=== PATIENT | female | born 1935 | race Caucasian/White ===

== ENCOUNTER 2019-09-30 01:05 | Emergency (ER) | payer MEDICARE ==
[~2019-09-30] VITALS: Ht 152.4 cm; Wt 77.1 kg
--- NOTE | 2019-09-30 01:05 | NUR ---
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 Pt states that she takes Xeralto for her pacemaker. Pt states that she stopped taking Xeralto 10 days ago r/t pain to RUE and lower back. 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 Pt unable to lift RLE per gravity, RLE cool to touch, unable to palpate right pedal pulse. Left pedal pulse bounding. No discoloration noted. No loss in sensation to affected extremity.
--- NOTE | 2019-09-30 01:05 | NUR ---
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 Pt states that she takes Xeralto for her pacemaker. Pt states that she stopped taking Xeralto 10 days ago r/t pain to RUE and lower back. 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 Pt unable to lift RLE per gravity, RLE cool to touch, palpable pedal pulses Bilat. No discoloration noted. No loss in sensation to affected extremity.
--- NOTE | 2019-09-30 01:10 | NUR ---
Dr. Vegas assessing pt.
[2019-09-30] MEDS ORDERED: ONDANSETRON HCL 4 MG/2 ML VIAL IVP ONE (01:30)
[2019-09-30] MEDS ORDERED: fentaNYL CITRATE/PF 100 MCG/2 ML AMP IVP ONE (01:30)
--- NOTE | 2019-09-30 02:15 | NUR ---
Pt placed to ER bed 1, to gown, to spot sprayer. Report given to HILARY Newell.
[2019-09-30 02:17] LABS: EOSINOPHILS # (AUTO) 0.2 K/uL (0.0-0.4); MONOCYTES # (AUTO) 0.5 K/uL (0.0-1.0); MONOCYTES % (AUTO) 6.2 % (1.7-9.3)
[2019-09-30 02:25] LABS: ANION GAP 10 (5-15); CALCIUM 8.6 mg/dL (8.4-11.0); CHLORIDE 106 mmol/L (98-107); CREATININE 0.71 mg/dL (0.55-1.30); GLUCOSE 152 mg/dL (70-99); POTASSIUM 3.8 mmol/L (3.5-5.1); SODIUM SERUM 143 mmol/L (136-145); UREA NITROGEN, BLOOD 28 mg/dL (8-21)
[2019-09-30 02:28] LABS: INR 1.7 (0.8-1.2); PROTHROMBIN TIME 16.7 SECS (9.5-12.5)
[2019-09-30 02:45] LABS: ALANINE AMINOTRANSFERASE 33 U/L (12-78); ALBUMIN 3.3 g/dL (3.4-4.8); ASPARTATE AMINOTRANSFERASE 37 U/L (10-37); BASOPHILS % (AUTO) 0.4 % (0.0-2.0); EOSINOPHILS % (AUTO) 2.6 % (0.0-4.0); HEMATOCRIT 36.7 % (36-48); HEMOGLOBIN 12.1 g/dL (12.0-16.0); LYMPHOCYTES # (AUTO) 1.8 K/uL (1.0-5.5); LYMPHOCYTES % (AUTO) 24.6 % (20.5-51.5); MEAN CORPUSCULAR HEMOGLOBIN 29 pg (27-31); MEAN CORPUSCULAR HGB CONC 33 % (32-36); MEAN CORPUSCULAR VOLUME 89 fL (79.0-98.0); NEUTROPHILS # (AUTO) 4.9 K/uL (1.8-7.7); NEUTROPHILS % (AUTO) 66.2 % (40.0-70.0); PLATELET COUNT (AUTO) 153 K/uL (130-430); RED BLOOD CELL COUNT(AUTO) 4.12 MIL/uL (4.2-6.2); RED CELL DISTRIBUTION WIDTH 16.8 % (9.0-15.0); TOTAL BILIRUBIN 0.5 mg/dL (0.0-1.0); WHITE BLOOD COUNT (AUTO) 7.4 K/uL (4.8-10.8)
--- NOTE | 2019-09-30 03:33 | NUR ---
Pt soiled gown changed. Pt repositioned and given new warm blanket for comfort
--- NOTE | 2019-09-30 04:06 | NUR ---
Medicated per MD orders. Tolerated well. Bed in lowest position, side rails up. at bedside.
--- NOTE | 2019-09-30 04:10 | NUR ---
Pt able to swallow water without difficulty
--- NOTE | 2019-09-30 05:00 | NUR ---
Pt restin gin ed bed comfortably. No acute distress noted. Vital signs stable.
--- NOTE | 2019-09-30 06:20 | NUR ---
Pt began run of abnormal rythm. MD whitman made aware.
--- NOTE | 2019-09-30 06:31 | NUR ---
20mg Cardizem IVP
--- NOTE | 2019-09-30 06:35 | NUR ---
Post Cardizem strip printed.
[2019-09-30] MEDS ORDERED: DILTIAZEM HCL 25 MG/5 ML VIAL IVP ONE ×2 (06:45→08:30)
--- NOTE | 2019-09-30 07:20 | NUR ---
Report given to HILARY Baeza. All care endorsed. Pt VSS
--- NOTE | 2019-09-30 07:21 | NUR ---
Dr. Masterson, Ophelia EPRP doc, paged back to speak to Dr. Vegas regarding pt status.
--- NOTE | 2019-09-30 07:37 | NUR ---
Currently waiting for a [facility] bed. Pt is in stable condition. Report received from Reece RICHARD.
[2019-09-30] MEDS ORDERED: HEPARIN 25,000 UNITS/D5W 250ML 250 ML IV ONE ×2 (07:45→08:45)
--- NOTE | 2019-09-30 08:16 | NUR ---
TRANSFER INFO [facility] ACCEPTING: MOHAN DAHL REPORT: [phone] CCT ETA 0900 SPOKE TO KIRT
[2019-09-30] MEDS ORDERED: HEPARIN SODIUM,PORCINE 5000 UNITS/ML VIAL IVP ONE (08:45)
--- NOTE | 2019-09-30 09:02 | NUR ---
4,000 unit IVP Heparin bolus given. Heparin drip started at 1000 unit/hr, 10ml/hr.
[2019-09-30 09:07] VITALS: BP_SYST 148
--- NOTE | 2019-09-30 09:13 | NUR ---
Patient to be transferred to [facility] ER. Is being transferred due to higher level of care. Receiving facility has accepting physician and available space. ER physician has signed transfer form. Patient or responsible constitution party has agreed to transfer and signed form. Patient belongings inventoried and will be sent with patient. Copy of nursing notes, lab reports, EKG, Physicians Orders and X-rays to be sent with patient. Report called to Jace RICHARD at receiving facility. Receiving physician is Dr. Norton. [facility] ambulance service has been called for transfer. IV is on the RUE 20g, patent and flushing well.
== END 2019-09-30 09:13 | disposition short-term general hospital (02) ==
LOC: SED 01:05
DX: I74.9 Embolism and thrombosis of unspecified artery (principal); I48.91 Unspecified atrial fibrillation; M79.604 Pain in right leg; I50.9 Heart failure, unspecified; E11.9 Type 2 diabetes mellitus without complications; Z90.49 Acquired absence of other specified parts of digestive tract; Z95.2 Presence of prosthetic heart valve; Z91.14 Patient's other noncompliance with medication regimen; Z86.79 Personal history of other diseases of the circulatory system
CPT/HCPCS: 36415; 70450-TC; 71045; 75635; 80053; 82550-TC; 84484; 85025; 85610-TC; 85730-TC; 93005; 93971; 96374; 96375; 96376; 99285

== ENCOUNTER 2020-09-07 13:17 | Emergency (ER) | payer MEDICARE ==
[~2020-09-07] VITALS: Ht 152.4 cm; Wt 72.6 kg
[2020-09-07 13:17] VITALS: BP_SYST 112
[2020-09-07 14:24] LABS: BASOPHILS # (AUTO) 0.1 K/uL (0.0-0.2); BASOPHILS % (AUTO) 0.9 % (0.0-2.0); EOSINOPHILS # (AUTO) 0.3 K/uL (0.0-0.4); EOSINOPHILS % (AUTO) 5.1 % (0.0-4.0); HEMATOCRIT 38.4 % (36-48); LYMPHOCYTES # (AUTO) 1.7 K/uL (1.0-5.5); LYMPHOCYTES % (AUTO) 24.9 % (20.5-51.5); MEAN CORPUSCULAR HEMOGLOBIN 31 pg (27-31); MEAN CORPUSCULAR HGB CONC 34 % (32-36); MEAN CORPUSCULAR VOLUME 91 fL (79.0-98.0); MONOCYTES # (AUTO) 0.5 K/uL (0.0-1.0); MONOCYTES % (AUTO) 6.9 % (1.7-9.3); NEUTROPHILS # (AUTO) 4.3 K/uL (1.8-7.7); NEUTROPHILS % (AUTO) 62.2 % (40.0-70.0); PLATELET COUNT (AUTO) 180 K/uL (130-430); RED BLOOD CELL COUNT(AUTO) 4.21 MIL/uL (4.2-6.2); RED CELL DISTRIBUTION WIDTH 15.3 % (9.0-15.0); WHITE BLOOD COUNT (AUTO) 6.8 K/uL (4.8-10.8)
[2020-09-07 14:37] LABS: ANION GAP 10 (5-15); CHLORIDE 105 mmol/L (98-107); CREATININE 1.09 mg/dL (0.55-1.30); GLUCOSE 151 mg/dL (70-99); POTASSIUM 3.3 mmol/L (3.5-5.1); SODIUM SERUM 142 mmol/L (136-145); UREA NITROGEN, BLOOD 24 mg/dL (8-21)
[2020-09-07 14:39] LABS: INR 1.7 (0.8-1.2); PROTHROMBIN TIME 17.3 SECS (9.5-12.5)
[2020-09-07 14:42] LABS: ALANINE AMINOTRANSFERASE 20 U/L (12-78); ALBUMIN 3.2 g/dL (3.4-4.8); ASPARTATE AMINOTRANSFERASE 23 U/L (10-37); TOTAL BILIRUBIN 0.3 mg/dL (0.0-1.0)
[2020-09-07] MEDS ORDERED: KCL 10 mEq in 50 mL (PREMIX) 50 ML IV ONE (14:45)
[2020-09-07 15:00] LABS: BILIRUBIN,URINE NEGATIVE (NEGATIVE); BLOOD, URINE NEGATIVE (NEGATIVE); CLARITY/URINE CLEAR (CLEAR); COLOR,URINE YELLOW (YELLOW); GLUCOSE,URINE NEGATIVE (NEGATIVE); KETONES,URINE NEGATIVE (NEGATIVE); LEUKOCYTE ESTERASE ,URINE NEGATIVE (NEGATIVE); NITRITE, URINE NEGATIVE (NEGATIVE); PROTEIN URINE NEGATIVE (NEGATIVE); UROBILINOGEN,URINE 0.2 (0.2-1.0)
[2020-09-07 17:10] VITALS: BP_SYST 146
== END 2020-09-07 17:10 | disposition left against medical advice (07) ==
LOC: SED 13:17
DX: R55 Syncope and collapse (principal); J44.9 Chronic obstructive pulmonary disease, unspecified; I10 Essential (primary) hypertension; E11.9 Type 2 diabetes mellitus without complications; E03.9 Hypothyroidism, unspecified
CPT/HCPCS: 36415; 70450; 71045; 76376; 80053; 81003; 83605; 83880; 84484; 85025; 85379; 85610; 85730; 87040; 96365; 99291; J3480

== ENCOUNTER 2021-11-05 15:21 | Inpatient (IN) | payer MEDICARE, SELFPAY ==
[~2021-11-05] VITALS: Ht 157.5 cm; Wt 63.0 kg
[2021-11-05 15:30] VITALS: BP_SYST 134
--- NOTE | 2021-11-05 15:32 | NUR ---
Beba nagy in [facility] - 11/05/21 at [address] Dmaon evaluating patient at bedside
--- NOTE | 2021-11-05 15:33 | NUR ---
Patient to ER bed 06 to gown for evaluation. Side rails up.
--- NOTE | 2021-11-05 15:34 | NUR ---
Dr Damon evaluating patient at bedside
--- NOTE | 2021-11-05 15:35 | NUR ---
Pt JHONATAN re ALOC post Ativan admin per family yesterday. Pt hardly arousable upon face to face assessment; localizing to painful stimuli only. Pt not following commands or verbalizing anything. "Gurgling" breaths heard; Dr Damon aware. Awaiting head CT and further dispo.
[2021-11-05] MEDS ORDERED: NACL 0.9% 1,000 ML IV ONE (15:45)
--- NOTE | 2021-11-05 16:00 | NUR ---
# 20 gauge angiocath placed to L outer forearm. Use of asceptic technique. Opsite placed over site. Blood return noted. Blood for lab drawn from site. Flushed with 10 cc of normal saline. No evidence of infiltration noted. Patient tolerated well.
[2021-11-05 16:29] LABS: BASOPHILS # (AUTO) 0.1 K/uL (0.0-0.2); BASOPHILS % (AUTO) 1.1 % (0.0-2.0); EOSINOPHILS # (AUTO) 0.1 K/uL (0.0-0.4); EOSINOPHILS % (AUTO) 1.1 % (0.0-4.0); HEMATOCRIT 36.9 % (36-48); LYMPHOCYTES # (AUTO) 2.4 K/uL (1.0-5.5); MEAN CORPUSCULAR HEMOGLOBIN 28 pg (27-31); MEAN CORPUSCULAR HGB CONC 32 % (32-36); MEAN CORPUSCULAR VOLUME 86 fL (79.0-98.0); MONOCYTES # (AUTO) 0.5 K/uL (0.0-1.0); MONOCYTES % (AUTO) 5.4 % (1.7-9.3); NEUTROPHILS # (AUTO) 5.8 K/uL (1.8-7.7); NEUTROPHILS % (AUTO) 65.4 % (40.0-70.0); PLATELET COUNT (AUTO) 175 K/uL (130-430); RED BLOOD CELL COUNT(AUTO) 4.29 MIL/uL (4.2-6.2); WHITE BLOOD COUNT (AUTO) 8.8 K/uL (4.8-10.8)
[2021-11-05 16:51] LABS: ANION GAP 9 (5-15); CALCIUM 8.5 mg/dL (8.4-11.0); CHLORIDE 107 mmol/L (98-107); CREATININE 1.18 mg/dL (0.55-1.30); GLUCOSE 120 mg/dL (70-99); POTASSIUM 4.3 mmol/L (3.5-5.1); SODIUM SERUM 145 mmol/L (136-145); UREA NITROGEN, BLOOD 42 mg/dL (8-21)
[2021-11-05 17:06] LABS: ALANINE AMINOTRANSFERASE 23 U/L (12-78); ALBUMIN 2.9 g/dL (3.4-4.8); ASPARTATE AMINOTRANSFERASE 45 U/L (10-37); THYROID STIMULATING HORMONE 5.24 uIu/mL (0.36-3.74); TOTAL BILIRUBIN 0.4 mg/dL (0.0-1.0)
[2021-11-05 17:11] LABS: ACETAMINOPHEN < 1 ug/mL (1-30); ALCOHOL, BLOOD < 3 mg/dL (<10)
--- NOTE | 2021-11-05 17:25 | NUR ---
Pt transported to [facility] via [facility]
--- NOTE | 2021-11-05 17:35 | NUR ---
Pt returned from CT scan via gurney at which time SL to L outer forearm noted to be infiltrated; SL removed. NS L stopped.
--- NOTE | 2021-11-05 17:35 | NUR ---
Pt noted to be on 6 L nasal cannula oxygen after return from CT scan
[2021-11-05 17:46] LABS: BARBITURATE, URINE NEGATIVE (NEG <=200); METHAMPHETAMINES SCREEN,URINE NEGATIVE (NEG <=500); URINE AMPHETAMINE NEGATIVE (NEG <=500); URINE METHADONE NEGATIVE (NEG <=200)
[2021-11-05 17:51] LABS: BENZODIAZEPINE, URINE POSITIVE (NEG <=150); CANNABINOID, URINE NEGATIVE (NEG <=50); COCAINE, URINE NEGATIVE (NEG <=150); OPIATE, URINE NEGATIVE (NEG <=100); PHENCYCLIDINE SCREEN,URINE NEGATIVE (NEG <=25); UR TRICYCLIC ANTIDEPRESSANTS NEGATIVE (NEG <=300); URINE OXYCODONE SCREEN NEGATIVE (NEG <=100); URINE PROPOXYPHENE SCREEN NEGATIVE (NEG <=300)
[2021-11-05 18:03] LABS: BILIRUBIN,URINE NEGATIVE (NEGATIVE); CLARITY/URINE CLOUDY (CLEAR); COLOR,URINE YELLOW (YELLOW); GLUCOSE,URINE NEGATIVE (NEGATIVE); KETONES,URINE NEGATIVE (NEGATIVE); LEUKOCYTE ESTERASE ,URINE 2+ (NEGATIVE); NITRITE, URINE NEGATIVE (NEGATIVE); PROTEIN URINE NEGATIVE (NEGATIVE); UROBILINOGEN,URINE 0.2 (0.2-1.0)
[2021-11-05 18:07] LABS: BLOOD, URINE TRACE (NEGATIVE)
[2021-11-05 18:15] LABS: BACTERIA,URINE MANY /HPF (None Seen); COARSE GRANULAR CASTS,URINE 0-10 /LPF (None Seen); MUCUS,URINE None Seen /LPF (None Seen); WBC,URINE 80-100 /HPF (0-3)
--- NOTE | 2021-11-05 18:15 | NUR ---
Unable to place new SL after a couple attempts. Dr Damon aware. Dr Damon also aware NS did not finish infusing.
--- NOTE | 2021-11-05 18:25 | NUR ---
ABG on room air obtained per RT. Patient's SpO2 noted to drop to 87-88% on room air. Oxygen put back up to 5 L.
--- NOTE | 2021-11-05 18:34 | NUR ---
Per Dr Damon, family decided to make pt DNR/DNI.
[2021-11-05] MEDS ORDERED: cefTRIAXone 1 GM in D5W 50 ML IV ONE (19:00)
--- NOTE | 2021-11-05 19:19 | NUR ---
Report given to Sherri RICHARD to assume care of patient
[2021-11-05] MEDS ORDERED: AMIO200T66 PO (19:23)
[2021-11-05] MEDS ORDERED: ROSU20TA2 PO (19:23)
[2021-11-05] MEDS ORDERED: RIVA15TA PO (19:23)
[2021-11-05] MEDS ORDERED: COR12.5 PO (19:23)
[2021-11-05] MEDS ORDERED: FURO-149 PO (19:23)
[2021-11-05] MEDS ORDERED: LEVO25TA7 PO (19:23)
--- NOTE | 2021-11-05 19:23 | NUR ---
Medication reconciliation completed with information provided by patient . Any prior medication reconciliation on file was reviewed and corrected.
--- NOTE | 2021-11-05 19:30 | NUR ---
[place] of care received, pt VSS at this time, per Amelie RN patient IV infiltated on L upper arm, no line at this time.
--- NOTE | 2021-11-05 19:50 | NUR ---
Attempted to start IV on R arm with no success, notified
--- NOTE | 2021-11-05 20:50 | NUR ---
Dr Damon placing IV on L neck/ EJ, fluids started ,well tolerated.
[2021-11-05] MEDS ORDERED: ONDANSETRON HCL 4 MG/2 ML VIAL IVP PRN (21:00)
[2021-11-05] MEDS ORDERED: cefTRIAXone 1 GM IVPB PREMIX 50 ML IV ONE (21:33)
--- NOTE | 2021-11-05 22:45 | NUR ---
Patient will be admitted to care of Dr Bernardo . Admitted to Tele unit. Will go to room 117A. Belongings list completed. Complete and up to date summary report printed. SBAR report to be given at bedside with opportunity for questions.
[2021-11-05 22:55] VITALS: BP_SYST 156
[2021-11-05] MEDS: D5/0.45 NS 1,000 ML IV SCH (23:29)
[2021-11-05] MEDS ORDERED: IPRATROPIUM/ALBUTEROL SULFATE 3 ML AMPUL.NEB (DUONEB) INH PRN (23:45)
--- NOTE | 2021-11-06 00:15 | NUR ---
CONSULTATION CALLED FOR DR. Serge GOTTLIEB FOR CONSULT OF INFECTIOUS DISEASE ORDER BY DR. RAYA SPOKE WITH RAE LEVYHEET FAXED TO [phone]
--- NOTE | 2021-11-06 00:19 | NUR ---
CONSULTATION FOR DR. BULLOCK FOR CONSULT OF INFECTIOUS DISEASE ORDER BY DR. DOROTA BULLOCK WAS ON SITE AND IS AWARE OF CONSULT DR HAS ALREADY SEEN PATIENT
[2021-11-06] MEDS: FAMOTIDINE PF 20 MG/2 ML VIAL IVP SCH ×2 (00:39→23:15)
[2021-11-06 05:00] VITALS: BP_SYST 156
[2021-11-06] MEDS ORDERED: cefTRIAXone 1 GM IVPB PREMIX 50 ML IV SCH (09:00)
[2021-11-06] MEDS: DEXAMETHASONE SOD PHOSPHATE 4 MG/ML VIAL IVP SCH (09:00)
--- NOTE | 2021-11-06 10:31 | NUR ---
Nutrition Update Yuri Scale 17 noted. Pt admitted for ALOC, COVID pneumonia. Diet: NPO BMI: 25.5 kg/m2 RD to follow per nutrition care standards.
[2021-11-06 11:37] VITALS: BP_SYST 156
[2021-11-06 15:51] VITALS: BP_SYST 174
[2021-11-06 16:51] LABS: BASOPHILS % (AUTO) 0.3 % (0.0-2.0); EOSINOPHILS # (AUTO) 0.1 K/uL (0.0-0.4); EOSINOPHILS % (AUTO) 0.8 % (0.0-4.0); HEMATOCRIT 31.6 % (36-48); HEMOGLOBIN 10.4 g/dL (12.0-16.0); LYMPHOCYTES # (AUTO) 1.7 K/uL (1.0-5.5); LYMPHOCYTES % (AUTO) 26.7 % (20.5-51.5); MEAN CORPUSCULAR HEMOGLOBIN 28 pg (27-31); MEAN CORPUSCULAR HGB CONC 33 % (32-36); MEAN CORPUSCULAR VOLUME 85 fL (79.0-98.0); MONOCYTES # (AUTO) 0.6 K/uL (0.0-1.0); MONOCYTES % (AUTO) 9.8 % (1.7-9.3); NEUTROPHILS # (AUTO) 3.9 K/uL (1.8-7.7); NEUTROPHILS % (AUTO) 62.4 % (40.0-70.0); PLATELET COUNT (AUTO) 157 K/uL (130-430); RED BLOOD CELL COUNT(AUTO) 3.73 MIL/uL (4.2-6.2); RED CELL DISTRIBUTION WIDTH 17.1 % (9.0-15.0); WHITE BLOOD COUNT (AUTO) 6.2 K/uL (4.8-10.8)
[2021-11-06 17:05] LABS: INR 1.2 (0.8-1.2); PROTHROMBIN TIME 12.5 SECS (9.5-12.5)
[2021-11-06 17:08] LABS: ANION GAP 7 (5-15); CALCIUM 7.8 mg/dL (8.4-11.0); CHLORIDE 112 mmol/L (98-107); CREATININE 0.69 mg/dL (0.55-1.30); GLUCOSE 120 mg/dL (70-99); POTASSIUM 3.4 mmol/L (3.5-5.1); SODIUM SERUM 149 mmol/L (136-145); UREA NITROGEN, BLOOD 25 mg/dL (8-21)
[2021-11-06 17:30] LABS: ALANINE AMINOTRANSFERASE 20 U/L (12-78); ALBUMIN 2.4 g/dL (3.4-4.8); ASPARTATE AMINOTRANSFERASE 30 U/L (10-37); TOTAL BILIRUBIN 0.3 mg/dL (0.0-1.0)
[2021-11-06 19:00] VITALS: BP_SYST 166
[2021-11-06 20:00] VITALS: BP_SYST 166
--- NOTE | 2021-11-06 21:45 | NUR ---
Report developed from emr.
[2021-11-07] MEDS: D5/0.45 NS 1,000 ML IV SCH ×3 (03:00→23:00)
--- NOTE | 2021-11-07 05:13 | NUR ---
onsultation Paged Reason for Consultation: Altered Was consult called : Y Person who was notified: Dr. Sharma text message Consulting Physician: Rishi Baker Ordering Physician: Dr. Carreno
[2021-11-07] MEDS ORDERED: LEVOTHYROXINE SODIUM 0.025 MG TABLET PO SCH (07:00)
[2021-11-07 07:41] LABS: BASOPHILS % (AUTO) 0.2 % (0.0-2.0); HEMATOCRIT 31.5 % (36-48); HEMOGLOBIN 10.4 g/dL (12.0-16.0); LYMPHOCYTES # (AUTO) 1.3 K/uL (1.0-5.5); LYMPHOCYTES % (AUTO) 26.9 % (20.5-51.5); MEAN CORPUSCULAR HEMOGLOBIN 28 pg (27-31); MEAN CORPUSCULAR HGB CONC 33 % (32-36); MEAN CORPUSCULAR VOLUME 84 fL (79.0-98.0); MONOCYTES # (AUTO) 0.2 K/uL (0.0-1.0); MONOCYTES % (AUTO) 3.2 % (1.7-9.3); NEUTROPHILS # (AUTO) 3.3 K/uL (1.8-7.7); NEUTROPHILS % (AUTO) 69.7 % (40.0-70.0); PLATELET COUNT (AUTO) 180 K/uL (130-430); RED BLOOD CELL COUNT(AUTO) 3.75 MIL/uL (4.2-6.2); RED CELL DISTRIBUTION WIDTH 17.5 % (9.0-15.0); WHITE BLOOD COUNT (AUTO) 4.8 K/uL (4.8-10.8)
[2021-11-07 08:13] LABS: ANION GAP 8 (5-15); CALCIUM 8.5 mg/dL (8.4-11.0); CHLORIDE 110 mmol/L (98-107); CREATININE 0.61 mg/dL (0.55-1.30); GLUCOSE 135 mg/dL (70-99); POTASSIUM 3.4 mmol/L (3.5-5.1); SODIUM SERUM 147 mmol/L (136-145); UREA NITROGEN, BLOOD 18 mg/dL (8-21)
[2021-11-07 08:19] VITALS: BP_SYST 181
[2021-11-07] MEDS: CARVEDILOL 12.5 MG TABLET (COREG) PO SCH (09:00)
[2021-11-07] MEDS: FUROSEMIDE 40 MG TABLET PO SCH (09:00)
[2021-11-07] MEDS: AMIODARONE HCL 200 MG TABLET PO SCH (09:00)
[2021-11-07] MEDS: RIVAROXABAN 15 MG TABLET PO SCH (09:00)
[2021-11-07] MEDS ORDERED: ROSUVASTATIN CALCIUM 5 MG/TAB (CRESTOR) PO SCH (09:00)
[2021-11-07] MEDS: ATORVASTATIN 20 MG TABLET PO SCH (09:00)
[2021-11-07] MEDS: DEXAMETHASONE SOD PHOSPHATE 4 MG/ML VIAL IVP SCH (10:34)
[2021-11-07] MEDS ORDERED: CEFTRIAXONE SOD 1 GM/ D5W 50 ML IV ONE ×2 (10:45)
[2021-11-07 11:24] VITALS: BP_SYST 175
[2021-11-07 15:20] VITALS: BP_SYST 165
--- NOTE | 2021-11-07 15:25 | NUR ---
NICOLE Bernardo regarding DVT prophylaxis and patient's impaired swallowing ability. Received orders. Noted and will carry out.
--- NOTE | 2021-11-07 16:59 | NUR ---
Dietitian Recommendations * Consider ST swallow eval prior to diet advancement * If PO diet is not indicated, consider alternative nutrition support within 1 week LP, RD Please refer to Nutrition Assessment for details. Addendum: 11/07/21 at [address] Amended: Links added.
--- NOTE | 2021-11-07 18:55 | NUR ---
CLOSING NOTE Patient currently resting in bed and respirations remain even and non-labored on 4 L NC. IV is patent and infusing fluids as ordered. Bed locked in lowest position and call light is within reach. All needs met throughout shift. Will endorse to mailroom clerk RN.
--- NOTE | 2021-11-07 19:55 | NUR ---
Opening notes Pt awake, alert, VSS, afebrile. IVF infusing L. ext jugular, clear and patent. Pt incontinent of urine. Pericare provided. Bed low, locked, siderails up x4, alarm on. To monitor.
[2021-11-07 21:00] VITALS: BP_SYST 146
[2021-11-07] MEDS: FAMOTIDINE PF 20 MG/2 ML VIAL IVP SCH (23:37)
[2021-11-08 00:32] VITALS: BP_SYST 152
--- NOTE | 2021-11-08 04:25 | NUR ---
Rounds Pt awake, restless, incontinent of urine. Pericare provided and repositioned pt with RECONDITIONING ASSOCIATE assist. O2 2L satting at 98-99%. Pt maintained NPO. Oral care provided. To monitor.
--- NOTE | 2021-11-08 05:40 | NUR ---
Closing notes Pt asleep, no s/s distress noted. O2 2L satting at 98-99%. IV L. ext jugular leaking. Attempt to restart IV x3, unsuccessful. Received call from pt's daughter, updated as needed. Bed low, locked, siderails up x4, bed alarm on. Safety/Covid isolation maintained. To endorse to AM nurse.
--- NOTE | 2021-11-08 07:55 | NUR ---
OPENING NOTE Received shift report from film processing shift supervisor RN. Patient resting in bed and respirations remain even and non-labored on 2 L NC. Bed locked in lowest position and call light is within reach. COVID precautions remain in place. Will continue to monitor.
[2021-11-08 08:09] VITALS: BP_SYST 157
[2021-11-08] MEDS: FUROSEMIDE 40 MG TABLET PO SCH (09:00)
[2021-11-08] MEDS: AMIODARONE HCL 200 MG TABLET PO SCH ×2 (09:00→15:17)
[2021-11-08] MEDS: CARVEDILOL 12.5 MG TABLET (COREG) PO SCH ×2 (09:00→15:17)
[2021-11-08] MEDS: D5/0.45 NS 1,000 ML IV SCH ×2 (09:00→17:15)
[2021-11-08] MEDS: ATORVASTATIN 20 MG TABLET PO SCH (09:00)
[2021-11-08] MEDS: RIVAROXABAN 15 MG TABLET PO SCH (09:00)
--- NOTE | 2021-11-08 10:30 | NUR ---
IV REINSERTION Reinserted new IV in right forearm 24 G. Will continue to monitor.
[2021-11-08] MEDS: DEXAMETHASONE SOD PHOSPHATE 4 MG/ML VIAL IVP SCH (10:59)
[2021-11-08] MEDS: CEFTRIAXONE SOD 1 GM/ D5W 50 ML IV SCH ×2 (11:00)
[2021-11-08] MEDS: ENOXAPARIN SODIUM 30 MG/0.3 ML SYRINGE SUBCUT SCH (11:01)
[2021-11-08 11:26] VITALS: BP_SYST 160
[2021-11-08] MEDS ORDERED: ALBUTEROL MDI INHALATION 8 GM INH INH PRN (13:45)
[2021-11-08 15:33] VITALS: BP_SYST 156
--- NOTE | 2021-11-08 16:30 | NUR ---
MENTAL STATUS Patient more alert and verbal to self. Can speak [place] phrases such as "bruna hambnamrata". Heart rate elevated at 130 BPM. Administered amiodarone and coreg crushed in applesauce. Will continue to monitor.
--- NOTE | 2021-11-08 18:35 | NUR ---
CLOSING NOTE Patient currently resting in bed and respirations remain even and non-labored on 2 L NC. IV is patent and infusing fluids as ordered. Bed locked in lowest position and call light is within reach. All needs met throughout shift. COVID precautions remain in place. Will endorse to specimen boss RN.
--- NOTE | 2021-11-08 20:10 | NUR ---
Opening notes Pt alert, awake, confused, restless. HR 130's. Pt incontinent of urine. Pericare provided with FOUNDER & CEO assist and repositioned in bed. Pt c/o back pain. Will check for pain medication. Bed low, locked, siderails up x 4, alarm on. Covid isolation maintained.To monitor.
--- NOTE | 2021-11-08 20:14 | NUR ---
Paged Pt awake. HR 130's on monitor. Pt c/o back pain 04/02. Paged and spoke w/ Dr. Bernardo and received order for Ultram and cardio consult. Will carry out.
--- NOTE | 2021-11-08 20:15 | NUR ---
HIGH ALERT NOTE: Called Dr. Bernardo back at [phone] identified within the medical roster to verify physician authenticity for Ultram.
[2021-11-08] MEDS: traMADol HCL HCL 50 MG TABLET (ULTRAM) PO PRN (21:14)
[2021-11-08 22:14] VITALS: BP_SYST 184
--- NOTE | 2021-11-08 22:39 | NUR ---
Pham MD/Consult Pt had elevated BP 184/73 HR 60 paced. At 2030 pt's HR 130-140's. Dr. Bernardo informed. Pham Ayala re: consult and for orders. Spoke with Cris. Awaiting callback.
[2021-11-08] MEDS: FAMOTIDINE PF 20 MG/2 ML VIAL IVP SCH (23:08)
--- NOTE | 2021-11-08 23:28 | NUR ---
RT at bedside for Stat EKG .
[2021-11-08] MEDS ORDERED: CARVEDILOL 12.5 MG TABLET (COREG) PO ONE (23:30)
[2021-11-09] VITALS: BP_SYST 169
[2021-11-09] MEDS: D5/0.45 NS 1,000 ML IV SCH ×2 (04:39→15:00)
--- NOTE | 2021-11-09 06:08 | NUR ---
Closing notes Pt asleep, easily awakens, no s/s distress noted. O2 2L satting at 98-99%. IVF infusing at ordered rate L. FA24G no s/s infiltration. Pt incontinent of urine, pericare provided. Bed low, locked, siderails up x4, bed alarm on. Safety/Covid isolation maintained. To endorse to AM nurse.
[2021-11-09] MEDS: DEXAMETHASONE SOD PHOSPHATE 4 MG/ML VIAL IVP SCH (09:53)
[2021-11-09] MEDS: ATORVASTATIN 20 MG TABLET PO SCH (09:53)
[2021-11-09] MEDS: CEFTRIAXONE SOD 1 GM/ D5W 50 ML IV SCH ×2 (09:53)
[2021-11-09] MEDS: RIVAROXABAN 15 MG TABLET PO SCH (09:54)
[2021-11-09] MEDS: ENOXAPARIN SODIUM 30 MG/0.3 ML SYRINGE SUBCUT SCH (09:55)
[2021-11-09] MEDS: CARVEDILOL 12.5 MG TABLET (COREG) PO SCH (09:56)
[2021-11-09] MEDS: FUROSEMIDE 40 MG TABLET PO SCH (09:56)
[2021-11-09] MEDS: AMIODARONE HCL 200 MG TABLET PO SCH (09:57)
[2021-11-09] MEDS: traMADol HCL HCL 50 MG TABLET (ULTRAM) PO PRN (10:01)
[2021-11-09 11:23] VITALS: BP_SYST 154
--- NOTE | 2021-11-09 12:30 | NUR ---
DR RAYA CALLED FOR AGITATION AND REGARDING ARICEPT 5 MG PO BY FAMILY REQUESTED SAID MILD DEMENTIA. AND NOT PATIENT NOT TAKEN MEDICATION. AND PATIENT HARD STICK
[2021-11-09] MEDS: LORazepam 2 MG/ML VIAL IVP PRN (14:14)
[2021-11-09 15:24] VITALS: BP_SYST 139
[2021-11-09 16:42] LABS: BASOPHILS % (AUTO) 0.4 % (0.0-2.0); EOSINOPHILS % (AUTO) 0.3 % (0.0-4.0); HEMATOCRIT 34.9 % (36-48); HEMOGLOBIN 11.5 g/dL (12.0-16.0); LYMPHOCYTES # (AUTO) 1.4 K/uL (1.0-5.5); LYMPHOCYTES % (AUTO) 16.7 % (20.5-51.5); MEAN CORPUSCULAR HEMOGLOBIN 28 pg (27-31); MEAN CORPUSCULAR HGB CONC 33 % (32-36); MEAN CORPUSCULAR VOLUME 84 fL (79.0-98.0); MONOCYTES # (AUTO) 0.4 K/uL (0.0-1.0); MONOCYTES % (AUTO) 4.3 % (1.7-9.3); NEUTROPHILS # (AUTO) 6.5 K/uL (1.8-7.7); NEUTROPHILS % (AUTO) 78.3 % (40.0-70.0); PLATELET COUNT (AUTO) 205 K/uL (130-430); RED BLOOD CELL COUNT(AUTO) 4.16 MIL/uL (4.2-6.2); RED CELL DISTRIBUTION WIDTH 16.9 % (9.0-15.0); WHITE BLOOD COUNT (AUTO) 8.3 K/uL (4.8-10.8)
[2021-11-09 16:51] LABS: ALANINE AMINOTRANSFERASE 23 U/L (12-78); ALBUMIN 2.7 g/dL (3.4-4.8); ANION GAP 9 (5-15); ASPARTATE AMINOTRANSFERASE 40 U/L (10-37); CALCIUM 8.1 mg/dL (8.4-11.0); CHLORIDE 100 mmol/L (98-107); CREATININE 0.71 mg/dL (0.55-1.30); GLUCOSE 166 mg/dL (70-99); PHOSPHORUS 1.7 mg/dL (2.7-4.5); SODIUM SERUM 139 mmol/L (136-145); TOTAL BILIRUBIN 0.3 mg/dL (0.0-1.0); UREA NITROGEN, BLOOD 18 mg/dL (8-21)
[2021-11-09 17:07] LABS: POTASSIUM 2.8 mmol/L (3.5-5.1)
--- NOTE | 2021-11-09 18:04 | NUR ---
BEEB CALLING FAMILY BUT NO JUST LEAVING A MESSAGE X3
--- NOTE | 2021-11-09 18:30 | NUR ---
PICC LINE CAME BUT NEED A CONSENT
[2021-11-09] MEDS ORDERED: POTASSIUM CHLORIDE 20 MEQ TAB.PRT.SR PO ONE (19:15)
--- NOTE | 2021-11-09 20:01 | NUR ---
cALLED FAMILY FOR CONSENT FOR MIDLINE BUT JUST LEAVING A MESSAGE.
--- NOTE | 2021-11-09 20:09 | NUR ---
CALLED DR RAYA FOR LAB RESULT OF 2.8. SAID PLEASE CALL ME BACK. PLEASE FOLLOW UP.
[2021-11-10 01:06] LABS: CHLAMYDIA TRACHOMATIS NAA Negative (Negative); NEISSERIA GONORRHOEAE NAA Negative (Negative)
[2021-11-10 01:22] VITALS: BP_SYST 175
[2021-11-10] MEDS: FAMOTIDINE PF 20 MG/2 ML VIAL IVP SCH ×2 (01:35→23:37)
[2021-11-10] MEDS: DONEPEZIL HCL 5 MG TABLET (ARICEPT) PO SCH ×2 (01:36→22:18)
[2021-11-10] MEDS: AMIODARONE HCL 200 MG TABLET PO SCH ×3 (01:44→22:25)
[2021-11-10] MEDS: CARVEDILOL 12.5 MG TABLET (COREG) PO SCH ×3 (01:46→22:20)
--- NOTE | 2021-11-10 06:39 | NUR ---
HILARY PADILLA TOLD SEVERAL TIMES THAT THE PATIENT HAS BEEN OFF THE TELE MONITOR SINCE 05:48 AM
[2021-11-10 07:00] LABS: BASOPHILS % (AUTO) 0.1 % (0.0-2.0); HEMATOCRIT 34.9 % (36-48); HEMOGLOBIN 11.7 g/dL (12.0-16.0); LYMPHOCYTES # (AUTO) 1.1 K/uL (1.0-5.5); LYMPHOCYTES % (AUTO) 15.8 % (20.5-51.5); MEAN CORPUSCULAR HEMOGLOBIN 28 pg (27-31); MEAN CORPUSCULAR HGB CONC 34 % (32-36); MEAN CORPUSCULAR VOLUME 83 fL (79.0-98.0); MONOCYTES # (AUTO) 0.6 K/uL (0.0-1.0); MONOCYTES % (AUTO) 8.7 % (1.7-9.3); NEUTROPHILS % (AUTO) 75.4 % (40.0-70.0); PLATELET COUNT (AUTO) 181 K/uL (130-430); RED BLOOD CELL COUNT(AUTO) 4.19 MIL/uL (4.2-6.2); RED CELL DISTRIBUTION WIDTH 16.2 % (9.0-15.0); WHITE BLOOD COUNT (AUTO) 6.7 K/uL (4.8-10.8)
[2021-11-10 07:20] LABS: ALANINE AMINOTRANSFERASE 30 U/L (12-78); ALBUMIN 2.6 g/dL (3.4-4.8); ANION GAP 8 (5-15); ASPARTATE AMINOTRANSFERASE 40 U/L (10-37); CHLORIDE 101 mmol/L (98-107); CREATININE 0.59 mg/dL (0.55-1.30); GLUCOSE 116 mg/dL (70-99); SODIUM SERUM 139 mmol/L (136-145); TOTAL BILIRUBIN 0.6 mg/dL (0.0-1.0); UREA NITROGEN, BLOOD 14 mg/dL (8-21)
[2021-11-10 08:19] VITALS: BP_SYST 165
[2021-11-10] MEDS: CEFTRIAXONE SOD 1 GM/ D5W 50 ML IV SCH ×2 (09:00)
--- NOTE | 2021-11-10 09:00 | NUR ---
DR RAYA CALLED FOR POTASSIUM 3.0 BUT STILL AWAITING FOR THE PICC LINE TO COME TO HAVE A MIDLINE PLACEMENT. FINALLY CONSENT SIGNED BY THE DAUGHTER NAMED RADHA AGGARWAL.
--- NOTE | 2021-11-10 10:42 | NUR ---
PLACED BILATERAL SOFT WRIST RESTRAINT. PATIENT IS CONFUSED AND PULLING OUT TUBES.
[2021-11-10] MEDS ORDERED: POTASSIUM CHLORIDE 40 MEQ in 0.45% NS 250 ML IV ONE (10:45)
--- NOTE | 2021-11-10 11:00 | NUR ---
INFORMED RAI NURSE MARINE RESOURCE ECONOMIST REGARDING THE PICC LINE NURSE. SAID HE CALLED. AWAITING FOR THE PICC LINE NURSE.
[2021-11-10 11:29] VITALS: BP_SYST 159
[2021-11-10] MEDS: ATORVASTATIN 20 MG TABLET PO SCH (11:31)
[2021-11-10] MEDS: DEXAMETHASONE SOD PHOSPHATE 4 MG/ML VIAL IVP SCH (11:31)
[2021-11-10] MEDS: FUROSEMIDE 40 MG TABLET PO SCH (11:32)
[2021-11-10] MEDS: RIVAROXABAN 15 MG TABLET PO SCH (11:33)
[2021-11-10] MEDS: ENOXAPARIN SODIUM 30 MG/0.3 ML SYRINGE SUBCUT SCH (11:33)
--- NOTE | 2021-11-10 13:42 | NUR ---
NGT TO RIGHT NARE PLACED #16. CLAMPED FOR MEDICATION. AND DRINKS.
--- NOTE | 2021-11-10 13:43 | NUR ---
DUE MEDS GIVEN AT THIS TIME. WILL CONTINUE TO MONITOR
[2021-11-10 15:23] VITALS: BP_SYST 147
--- NOTE | 2021-11-10 15:24 | NUR ---
Case mgt: Nurse Loretta inquiring who is main contact for decision-making for patient and also Marissa Esteves in admitting said she rec'd call from patient's daughter Mario [phone] asking to be added as the primary contact. I left message for Mario to call me and bring in a copy of a power of attorney at law if she has one for our records. MAMADOU RICHARD
--- NOTE | 2021-11-10 15:27 | NUR ---
DR RAYA CAME INFORMED REGARDING THE PICC LINE AWAITING TO INSERT MIDLINE. FOR THE [place] HOOD
--- NOTE | 2021-11-10 18:00 | NUR ---
INFORMED FRANCIS NURSE VEHICLE RETURN ASSOCIATE REGARDING THE PICC LINE NURSE WHEN TO COME. SAID HE CALLED IN.
--- NOTE | 2021-11-10 19:48 | NUR ---
ENDORSED TO INCOMING NURSE LORETA RICHARD.
[2021-11-10 20:00] VITALS: BP_SYST 159
--- NOTE | 2021-11-10 20:00 | NUR ---
Received pt up in bed in stable condition. Awake/confused. NGT in place. Bilateral restraints in place; skin integrity maintained. No signs of injury to bilateral wrists. Breathing adequately on RA. No signs of distress.
[2021-11-10] MEDS: D5/0.45 NS 1,000 ML IV SCH (21:00)
[2021-11-11] VITALS: BP_SYST 144
--- NOTE | 2021-11-11 | NUR ---
Resting comfortably in bed, easy to arouse. No signs of distress. Breathing adequately on RA. NGT remains in place. Bilateral restraints in place; skin integrity maintained.
--- NOTE | 2021-11-11 03:55 | NUR ---
Pt noted with dislodged NGT. No signs of injury. No active bleeding. MD made aware. Will attempt reinsertion at this time.
[2021-11-11 04:57] VITALS: BP_SYST 146
--- NOTE | 2021-11-11 06:40 | NUR ---
NGT reinserted in L nare. Chest xray ordered for placement confirmation.
[2021-11-11] MEDS: D5/0.45 NS 1,000 ML IV SCH ×2 (07:00→17:00)
--- NOTE | 2021-11-11 07:55 | NUR ---
OPENING NOTE Received shift report from hourly shift manager RN. Patient Eliza currently resting in bed and respirations remain even and non-labored on 2 L NC. NG tube is patent. Bed locked in lowest position and call light is within reach. COVID precautions remain in place. Will continue to monitor. Addendum: 11/11/21 at 1201 by Chhaya Davila RN Restrains remain in place and NGT remains in place.
[2021-11-11 08:11] VITALS: BP_SYST 162
[2021-11-11] MEDS: CEFTRIAXONE SOD 1 GM/ D5W 50 ML IV SCH ×2 (09:00)
[2021-11-11] MEDS: DEXAMETHASONE SOD PHOSPHATE 4 MG/ML VIAL IVP SCH (09:00)
--- NOTE | 2021-11-11 09:04 | NUR ---
DISCHARGE PLANNING Received call from dtr Mario Robertson, ph [phone], states she is POA that will bring in copy of Advanced Directive. Pt lives with in 1 story home, dtr Mario lives next door to pt. Mario is main caregiver for pt & also assists. Pt baseline ambulates on own & requires min assist with adl's due to pt's Alzheimers. Per dtr pt is normally alert & is oriented at times & at times confused due to Alzheimers. At home pt has hospital bed, fww, wc, shower chair, & has received home O2 due to covid & was using prior to hospitalization. States that received thru [employer] & also has a nurse that comes every 2wks and an A AND P TECHNICIAN that comes 1x/wk thru [employer] also. States was not thru [employer]. States not sure how pt has [employer] that her niece works for [employer] & set it up. Per dtr pt's tested Covid + at [facility] on 10/31/2021 & pt came back Covid + on 11/01 thru home test. Aware pt was max assist with PT & not eating. States she would be able to get pt to eat if pt was dc'd home, that pt is picky eater. Does not want pt going to SNF, states she will stay in pt's home & will be main caregiver & will also be able to assist. States has all DME required & will be agreeable with home health thru [employer] insurance.
[2021-11-11] MEDS: CARVEDILOL 12.5 MG TABLET (COREG) PO SCH ×2 (10:15→21:00)
[2021-11-11] MEDS: FUROSEMIDE 40 MG TABLET PO SCH (10:16)
[2021-11-11] MEDS: AMIODARONE HCL 200 MG TABLET PO SCH ×2 (10:17→21:00)
[2021-11-11] MEDS: ENOXAPARIN SODIUM 30 MG/0.3 ML SYRINGE SUBCUT SCH (10:19)
[2021-11-11] MEDS: ATORVASTATIN 20 MG TABLET PO SCH (10:25)
[2021-11-11 12:00] VITALS: BP_SYST 152
--- NOTE | 2021-11-11 12:01 | NUR ---
NURSING RESEARCH ASSISTANT PROFESSOR Informed nursing finishing supervisor Michelet about PICC line placement. Said he will call. Addendum: 11/11/21 at 1327 by Chhaya Davila RN PICC team will come around 1600 11/11/21
--- NOTE | 2021-11-11 16:34 | NUR ---
Nutrition F/U: RD reviewed pt's current EMR record including diet Hx, physician notes, nursing notes, pertinent labs/meds/procedures, care trends, and care activity. Admitting Diagnosis ALOC, COVID pneumonia Medical History Comment: Hypothyroidism, dementia, COPD, DM, HTN, complete heart block and paroxysmal atr fibr per physician notes SARS-CoV-2 Ag (Rapid) Positive 11/[address] bedside visit deferred d/t airborne isolation precautions a/w COVID. Per EMR reviewed, pt is having NG in placed, no feeding had been initiated. Pt is refused all meals. While awaiting discharge, pt may benefit from TF initiation to prevent malnutrition. Per discharge planning notes, pt is going to be discharge home with home health and family member want pt to eat orally due to picky eater. Skin risk score of 14 noted, with left right arm ecchymosis. Current Diet Order/Nutrition: Clear liquids x 2days. Pertinent Medications: Lovenox, coreg, Lipitor, Lasix, decadron, pepcid, D5%1/2NS at 100 ml/hr (408 kcal/day) Pertinent Labs : (11/10) K: 3.0L, GLU: 116H, ALT: 2.6L Height: 52 Weight: 139lbs/ 63.173412 kg stable since 11/07 Body Mass Index: 25.42 kg/m2 %IBW: 126 [place]/Adjusted Body Weight 110#/50 kg. 117#/53 kg Estimated Energy Expenditure (kcals/day) 3759-1999 (30-35 kcal/kg IBW d/t acute state) Estimated Protein Required (g/day) 60-75 (1.2-1.5 gm/kg IBW d/t acute state) Estimated Fluid Required (l/day) 1.6-1.9 (25-30 ml/kg CBW d/t GERIAT maintenance) Problem/Etiology/Signs/Symptoms Increased nutritional needs R/T metabolic demands AEB estimated nutritional requirements for acute state. (*on going) Expected Outcomes/Goals - Monitor TF tolerance & intakes w/ goal of pt meeting at least 75% of estimated nutritional needs, labs trending WNL, normal GI function, and skin integrity/wt maintenance Dietitian Recommendations * Initiating Glucerna 1.5 at 10ml/hr, goal of 40 ml/hr, FWF at 200ml/Q6hrs (providing 1440 kcal, 79g protein, 729 ml free water) * Include IVF, which is meeting 106% estimated caloric need, 105% estimated protein need at higher end) * D/C IVF after TF initiating due to elevated BG levels. Follow Up High Risk: F/U in 2-3days
--- NOTE | 2021-11-11 16:35 | NUR ---
Dietitian Recommendations * Initiating Glucerna 1.5 at 10ml/hr, goal of 40 ml/hr, FWF at 200ml/Q6hrs (providing 1440 kcal, 79g protein, 729 ml free water) * Include IVF, which is meeting 106% estimated caloric need, 105% estimated protein need at higher end) * D/C IVF after TF initiating due to elevated BG levels. Please refer to nutrition assessment for details.
[2021-11-11 16:50] VITALS: BP_SYST 149
--- NOTE | 2021-11-11 17:30 | NUR ---
Midline placement Midline placed in right upper arm double lumen. Will continue to monitor.
--- NOTE | 2021-11-11 18:45 | NUR ---
CLOSING NOTE Patient currently resting in bed and respirations remain even and non-labored on room air. Midline is patent and infusing fluids as ordered. NG tube remains in place. Soft wrist restraints remain on. Bed locked in lowest position and call light is within reach. COVID precautions remain in place. All needs met throughout shift. Will endorse to production intern RN.
--- NOTE | 2021-11-11 19:30 | NUR ---
Opening note Received report from day shift. Pt is resting in bed. No s/s of respiratory distress. Breathing even and unlabored. Right nare NT tube intact and in place. Soft bilateral wrist restraints in place. RAVINDRA midline intact and patent with fluids running at ordered rate. Fall and safety precautions in place with bed in lowest position, bed alarm on, and call light within reach
[2021-11-11 20:00] VITALS: BP_SYST 148
[2021-11-11] MEDS: DONEPEZIL HCL 5 MG TABLET (ARICEPT) PO SCH (21:00)
[2021-11-12] VITALS: BP_SYST 114
[2021-11-12] MEDS: FAMOTIDINE PF 20 MG/2 ML VIAL IVP SCH (00:02)
--- NOTE | 2021-11-12 00:15 | NUR ---
Rounds Pt is sleeping. No s/s of acute distress. Fall and safety checks in place
[2021-11-12] MEDS: LORazepam 2 MG/ML VIAL IVP PRN (00:29)
[2021-11-12] MEDS: D5/0.45 NS 1,000 ML IV SCH ×3 (03:16→20:46)
--- NOTE | 2021-11-12 06:47 | NUR ---
Closing note Pt is resting in bed. No s/s of respiratory distress. Breathing even and unlabored. Right nare NT tube intact and in place. Soft bilateral wrist restraints in place. RAVINDRA midline intact and patent with fluids running at ordered rate. All needs met throughout shift. Fall and safety precautions in place with bed in lowest position, bed alarm on, and call light within reach
--- NOTE | 2021-11-12 08:00 | NUR ---
OPENING NOTE Received shift report update from production supervisor off shift RN. Patient currently resting in bed and shows no signs of respiratory distress. Midline is patent and infusing fluids as ordered. Bilateral soft wrist restraints remain in place. Bed locked in lowest position and call light is within reach. COVID precautions remain in place. Will continue to monitor.
[2021-11-12 08:20] VITALS: BP_SYST 153
[2021-11-12] MEDS: CEFTRIAXONE SOD 1 GM/ D5W 50 ML IV SCH ×2 (09:20)
[2021-11-12] MEDS: ENOXAPARIN SODIUM 30 MG/0.3 ML SYRINGE SUBCUT SCH (09:21)
[2021-11-12] MEDS: AMIODARONE HCL 200 MG TABLET PO SCH ×2 (09:22→20:45)
[2021-11-12] MEDS: ATORVASTATIN 20 MG TABLET PO SCH (09:22)
[2021-11-12] MEDS: DEXAMETHASONE SOD PHOSPHATE 4 MG/ML VIAL IVP SCH (09:22)
[2021-11-12] MEDS: FUROSEMIDE 40 MG TABLET PO SCH (09:23)
[2021-11-12] MEDS: CARVEDILOL 12.5 MG TABLET (COREG) PO SCH ×2 (09:23→20:46)
--- NOTE | 2021-11-12 09:35 | NUR ---
Nutrition Note RD spoke w/ pt's primary RN to inquire about initiation of TF via NGT. She stated that she plans to ask the physician when they round. RD relayed rec for TF: Glucerna 1.5 at 40 ml/hr (goal rate), Free Water Flush: 200 ml Q6h via NGT; D/C IVF after TF initiates to prevent elevated BG. Please refer to Nutrition F/U 11/11/21 for details.
[2021-11-12 12:00] VITALS: BP_SYST 144
--- NOTE | 2021-11-12 15:24 | NUR ---
RECEIVED HOME OXYGEN Received home supplemental oxygen tank kit. Labeled equipment and put in patient's room.
[2021-11-12 16:00] VITALS: BP_SYST 135
--- NOTE | 2021-11-12 19:00 | NUR ---
CLOSING NOTE Patient currently resting in bed and respirations remain even and non-labored on 4 L NC. Midline is patent and infusing fluids as ordered. Bed locked in lowest position and call light is within reach. COVID precautions remain in place. All needs met throughout shift. Will endorse to food service coordinator RN. Addendum: 11/12/21 at 1957 by Chhaya Davila RN Bilateral soft wrist restraints remain in place.
[2021-11-12 20:00] VITALS: BP_SYST 157
--- NOTE | 2021-11-12 20:22 | NUR ---
Spoke w/ Dr Bernardo regarding no feeding pump available, ordered to give bolus feeding 200mL Q4 hours
[2021-11-12] MEDS: DONEPEZIL HCL 5 MG TABLET (ARICEPT) PO SCH (20:45)
[2021-11-13] VITALS (7 sets, daily range): BP systolic 130–188
[2021-11-13] MEDS: FAMOTIDINE PF 20 MG/2 ML VIAL IVP SCH ×2 (00:14→23:16)
--- NOTE | 2021-11-13 07:03 | NUR ---
Closing note Pt is resting in bed. No s/s of respiratory distress. Breathing even and unlabored. Right nare NG tube intact and in place. Soft bilateral wrist restraints in place. RAVINDRA midline intact and patent with fluids running at ordered rate. All needs met throughout shift. Fall and safety precautions in place with bed in lowest position, bed alarm on, and call light within reach
--- NOTE | 2021-11-13 07:41 | NUR ---
PHYSICAL THERAPY CO-SIGN The Physical Therapy Progress Notes documented by Gearcase Assembler have been reviewed. Reviewed/Co-Signed by: Melchor Rondon Documentation Done by: JHONNY PONCE PTA Addendum: 11/13/21 at 0741 by Melchor Rondon PT Amended: Links added.
[2021-11-13] MEDS: D5/0.45 NS 1,000 ML IV SCH ×2 (09:00→21:55)
[2021-11-13] MEDS: AMIODARONE HCL 200 MG TABLET PO SCH ×2 (09:00→21:55)
[2021-11-13] MEDS: CEFTRIAXONE SOD 1 GM/ D5W 50 ML IV SCH ×2 (09:00)
[2021-11-13] MEDS: CARVEDILOL 12.5 MG TABLET (COREG) PO SCH ×2 (09:00→21:54)
[2021-11-13] MEDS: ENOXAPARIN SODIUM 30 MG/0.3 ML SYRINGE SUBCUT SCH (09:00)
[2021-11-13] MEDS: ATORVASTATIN 20 MG TABLET PO SCH (09:00)
[2021-11-13] MEDS: FUROSEMIDE 40 MG TABLET PO SCH (09:00)
[2021-11-13] MEDS: DEXAMETHASONE SOD PHOSPHATE 4 MG/ML VIAL IVP SCH (09:00)
[2021-11-13 09:57] LABS: CALCIUM 8.1 mg/dL (8.4-11.0); CREATININE 0.78 mg/dL (0.55-1.30); GLUCOSE 119 mg/dL (70-99); UREA NITROGEN, BLOOD 20 mg/dL (8-21)
[2021-11-13 10:02] LABS: ANION GAP 12 (5-15); CHLORIDE 99 mmol/L (98-107); SODIUM SERUM 138 mmol/L (136-145)
[2021-11-13 10:03] LABS: BASOPHILS % (AUTO) 0.2 % (0.0-2.0); EOSINOPHILS # (AUTO) 0.2 K/uL (0.0-0.4); EOSINOPHILS % (AUTO) 1.4 % (0.0-4.0); HEMATOCRIT 35.3 % (36-48); HEMOGLOBIN 11.8 g/dL (12.0-16.0); LYMPHOCYTES # (AUTO) 1.6 K/uL (1.0-5.5); MEAN CORPUSCULAR HEMOGLOBIN 28 pg (27-31); MEAN CORPUSCULAR HGB CONC 33 % (32-36); MEAN CORPUSCULAR VOLUME 84 fL (79.0-98.0); MONOCYTES # (AUTO) 0.8 K/uL (0.0-1.0); MONOCYTES % (AUTO) 5.1 % (1.7-9.3); NEUTROPHILS # (AUTO) 13.3 K/uL (1.8-7.7); NEUTROPHILS % (AUTO) 83.3 % (40.0-70.0); RED BLOOD CELL COUNT(AUTO) 4.23 MIL/uL (4.2-6.2); RED CELL DISTRIBUTION WIDTH 16.3 % (9.0-15.0); WHITE BLOOD COUNT (AUTO) 15.9 K/uL (4.8-10.8)
[2021-11-13 10:10] LABS: POTASSIUM 2.9 mmol/L (3.5-5.1)
--- NOTE | 2021-11-13 10:36 | NUR ---
potassium 2.9 dr[address] esquivel notified and potassium 60meq po ordered and administered Addendum: 11/13/21 at [facility] by Twenty eight sales and marketing agent administered through NGT. severo updated on plan of care at this time. patient repositioned every two hours to protect from skin break down
[2021-11-13] MEDS ORDERED: POTASSIUM CHLORIDE 20 MEQ/PKT PACKET PO ONE (10:45)
[2021-11-13 13:27] LABS: PLATELET COUNT (AUTO) 197 K/uL (130-430)
--- NOTE | 2021-11-13 14:35 | NUR ---
Family updated on POC
--- NOTE | 2021-11-13 15:39 | NUR ---
Nutrition F/U RD reviewed pt's current EMR record including diet Hx, physician notes, nursing notes, pertinent labs/meds/procedures, care trends, and care activity. Admitting Diagnosis ALOC, COVID pneumonia Medical History Comment: Hypothyroidism, dementia, COPD, DM, HTN, complete heart block and paroxysmal atr fibr per physician notes SARS-CoV-2 Ag (Rapid) Positive 11/05 Subjective Information: RD rounded to [facility] unit and spoke w/ pt's primary RN who reported that pt has been receiving bolus feedings of formula: 200 ml Q4h and water flush: 200 ml Q6h -- this equates to 1200 ml/day, 1800 kcal/day, 99 gm protein/day, and 911 ml free water/day -- pt is also receiving D5%NS at 100 m/hr (408 kcal/day) -- combined, pt may be receiving 2208 kcal/day, or 126% of upper end of estimate caloric needs. RD relayed for for bolus feeding of 160 ml Q4h to better meet pt's nutritional needs; RN acknowledged. Per EMR review, pt is on bilat wrist restraints; on 3 L O2 via NC; no TF Rate/Intake/GRV noted; last BM x3 11/13; Yuri scale: 12 -- no PIs noted. Current TF prescription remains adequate/appropriate. Current Diet Order/Nutrition: Glucerna 1.5 at 40 ml/hr (goal rate), Free Water Flush: 200 ml Q6h via NGT x1 day Pertinent Medications: Lovenox, coreg, Lipitor, Lasix, decadron, pepcid, D5%1/2NS at 100 ml/hr (408 kcal/day) Pertinent Labs: K 2.9 L, BG 119 H, ALB 2.6 L, WBC 15.9 H Height: 52 Weight: 139lbs/ 63.461344 kg stable since 11/07 Body Mass Index: 25.42 kg/m2 %IBW: 126 [place]/Adjusted Body Weight 110#/50 kg. 117#/53 kg Estimated Energy Expenditure (kcals/day) 2104-2101 (30-35 kcal/kg IBW d/t acute state) Estimated Protein Required (g/day) 60-75 (1.2-1.5 gm/kg IBW d/t acute state) Estimated Fluid Required (l/day) 1.6-1.9 (25-30 ml/kg CBW d/t GERIAT maintenance) Problem/Etiology/Signs/Symptoms Increased nutritional needs R/T metabolic demands AEB estimated nutritional requirements for acute state. (*Ongoing) Expected Outcomes/Goals - Monitor TF tolerance & intakes w/ goal of pt meeting at least 75% of estimated nutritional needs, labs trending WNL, normal GI function, and skin integrity/wt maintenance Dietitian Recommendations * Glucerna 1.5 at 40 ml/hr -OR- bolus feeding 160 ml Q4h (960 ml/day), Free Water Flush: 200 ml Q6h via NGT Provides (w/ current D5%NS infusion rate): 1848 kcal/day, 79 gm protein/day, and 1529 ml free water/day Meets: 106% of upper end of estimated caloric needs, 105% of upper end of estimated protein needs Follow Up High Risk: F/U in 2-3 days
--- NOTE | 2021-11-13 15:48 | NUR ---
Dietitian Recommendations * Glucerna 1.5 at 40 ml/hr -OR- bolus feeding 160 ml Q4h (960 ml/day), Free Water Flush: 200 ml Q6h via NGT Provides (w/ current D5%NS infusion rate): 1848 kcal/day, 79 gm protein/day, and 1529 ml free water/day Meets: 106% of upper end of estimated caloric needs, 105% of upper end of estimated protein needs LP, RD Please refer to Nutrition F/U for details.
--- NOTE | 2021-11-13 18:05 | NUR ---
patient pulled out NGT at this time by wiggling her head into the pillow. patient's right nare has small amount of blood smeared on nostril. patient's nose cleaned and tape removed. notified at this time and gave orders to leave ngt out for the night and reattempt in the morning so her mucosal lining in the nose will not be traumatized. Patient continues to wear b/l wrist retraints per md order due to pulling at picc line and other tubings. will continue to implement and maintain comfort and safety this shift.
[2021-11-13] MEDS: DONEPEZIL HCL 5 MG TABLET (ARICEPT) PO SCH (21:55)
[2021-11-14 00:33] VITALS: BP_SYST 146
[2021-11-14] MEDS: D5/0.45 NS 1,000 ML IV SCH ×2 (04:23→15:00)
[2021-11-14 08:00] VITALS: BP_SYST 140
--- NOTE | 2021-11-14 08:02 | NUR ---
HANDOFF WITH HILARY TIDWELL. DAKOTAH TALLEY RN
[2021-11-14 08:15] LABS: BASOPHILS % (AUTO) 0.3 % (0.0-2.0); EOSINOPHILS # (AUTO) 0.1 K/uL (0.0-0.4); EOSINOPHILS % (AUTO) 1.6 % (0.0-4.0); HEMATOCRIT 31.4 % (36-48); HEMOGLOBIN 10.6 g/dL (12.0-16.0); LYMPHOCYTES # (AUTO) 1.1 K/uL (1.0-5.5); LYMPHOCYTES % (AUTO) 13.2 % (20.5-51.5); MEAN CORPUSCULAR HEMOGLOBIN 28 pg (27-31); MEAN CORPUSCULAR HGB CONC 34 % (32-36); MEAN CORPUSCULAR VOLUME 83 fL (79.0-98.0); MONOCYTES # (AUTO) 0.8 K/uL (0.0-1.0); NEUTROPHILS % (AUTO) 74.9 % (40.0-70.0); PLATELET COUNT (AUTO) 161 K/uL (130-430); RED CELL DISTRIBUTION WIDTH 16.7 % (9.0-15.0)
[2021-11-14 08:47] LABS: ANION GAP 8 (5-15); CHLORIDE 103 mmol/L (98-107); CREATININE 0.71 mg/dL (0.55-1.30); GLUCOSE 132 mg/dL (70-99); POTASSIUM 3.1 mmol/L (3.5-5.1); SODIUM SERUM 138 mmol/L (136-145); UREA NITROGEN, BLOOD 21 mg/dL (8-21)
[2021-11-14 08:57] LABS: WHITE BLOOD COUNT (AUTO) 8.1 K/uL (4.8-10.8)
[2021-11-14] MEDS: CEFTRIAXONE SOD 1 GM/ D5W 50 ML IV SCH ×2 (09:00)
[2021-11-14] MEDS: CARVEDILOL 12.5 MG TABLET (COREG) PO SCH ×2 (09:00→21:59)
[2021-11-14] MEDS: AMIODARONE HCL 200 MG TABLET PO SCH ×2 (09:00→21:58)
[2021-11-14] MEDS: ENOXAPARIN SODIUM 30 MG/0.3 ML SYRINGE SUBCUT SCH (09:00)
[2021-11-14] MEDS: ATORVASTATIN 20 MG TABLET PO SCH (09:00)
[2021-11-14] MEDS: FUROSEMIDE 40 MG TABLET PO SCH (09:00)
[2021-11-14] MEDS: DEXAMETHASONE SOD PHOSPHATE 4 MG/ML VIAL IVP SCH (09:00)
[2021-11-14 11:35] VITALS: BP_SYST 150
[2021-11-14] MEDS ORDERED: KCL 20 mEq in 100 mL (PREMIX) 100 ML IV ONE (12:00)
[2021-11-14 15:36] VITALS: BP_SYST 153
[2021-11-14] MEDS: LORazepam 2 MG/ML VIAL IVP PRN (19:52)
[2021-11-14] MEDS: DONEPEZIL HCL 5 MG TABLET (ARICEPT) PO SCH (21:59)
[2021-11-14] MEDS: FAMOTIDINE PF 20 MG/2 ML VIAL IVP SCH (22:24)
[2021-11-15 00:56] VITALS: BP_SYST 183
[2021-11-15] MEDS: D5/0.45 NS 1,000 ML IV SCH ×2 (05:07→11:00)
[2021-11-15 06:04] VITALS: BP_SYST 213
--- NOTE | 2021-11-15 07:51 | NUR ---
Handoff with HILARY Samuels. Boy De Jesus RN
[2021-11-15] MEDS: ATORVASTATIN 20 MG TABLET PO SCH (09:00)
[2021-11-15] MEDS: CEFTRIAXONE SOD 1 GM/ D5W 50 ML IV SCH ×2 (09:00)
[2021-11-15] MEDS: AMIODARONE HCL 200 MG TABLET PO SCH (09:00)
[2021-11-15] MEDS: FUROSEMIDE 40 MG TABLET PO SCH (09:00)
[2021-11-15] MEDS: ENOXAPARIN SODIUM 30 MG/0.3 ML SYRINGE SUBCUT SCH (09:00)
[2021-11-15] MEDS: DEXAMETHASONE SOD PHOSPHATE 4 MG/ML VIAL IVP SCH (09:00)
[2021-11-15] MEDS: CARVEDILOL 12.5 MG TABLET (COREG) PO SCH (09:00)
[2021-11-15 09:04] LABS: BASOPHILS % (AUTO) 0.2 % (0.0-2.0); EOSINOPHILS # (AUTO) 0.2 K/uL (0.0-0.4); EOSINOPHILS % (AUTO) 3.1 % (0.0-4.0); HEMATOCRIT 34.5 % (36-48); HEMOGLOBIN 11.5 g/dL (12.0-16.0); LYMPHOCYTES # (AUTO) 1.4 K/uL (1.0-5.5); LYMPHOCYTES % (AUTO) 18.4 % (20.5-51.5); MEAN CORPUSCULAR HEMOGLOBIN 28 pg (27-31); MEAN CORPUSCULAR HGB CONC 33 % (32-36); MEAN CORPUSCULAR VOLUME 83 fL (79.0-98.0); MONOCYTES # (AUTO) 0.8 K/uL (0.0-1.0); NEUTROPHILS # (AUTO) 5.2 K/uL (1.8-7.7); NEUTROPHILS % (AUTO) 67.3 % (40.0-70.0); PLATELET COUNT (AUTO) 190 K/uL (130-430); RED BLOOD CELL COUNT(AUTO) 4.15 MIL/uL (4.2-6.2); RED CELL DISTRIBUTION WIDTH 16.6 % (9.0-15.0); WHITE BLOOD COUNT (AUTO) 7.7 K/uL (4.8-10.8)
[2021-11-15 11:42] LABS: ANION GAP 13 (5-15); CALCIUM 8.2 mg/dL (8.4-11.0); CHLORIDE 100 mmol/L (98-107); CREATININE 0.66 mg/dL (0.55-1.30); GLUCOSE 112 mg/dL (70-99); SODIUM SERUM 136 mmol/L (136-145); UREA NITROGEN, BLOOD 10 mg/dL (8-21)
[2021-11-15 12:45] VITALS: BP_SYST 196
[2021-11-15 17:27] VITALS: BP_SYST 182
[2021-11-15 18:30] VITALS: BP_SYST 137
[2021-11-15 20:00] VITALS: BP_SYST 155
--- NOTE | 2021-11-15 22:28 | NUR ---
NG TUBE PLACED BY EMILI RICHARD AT THIS TIME. AUSCULTATED ABDOMEN AND PUMPED AIR INTO NG TUBE TO CHECK PLACEMENT. ORDERING CXR TO CONFIRM PLACEMENT. CENTRAL LINE DRESSING CHANGE DONE BY NORI ALEJO.
--- NOTE | 2021-11-15 23:15 | NUR ---
TO ORDER SPOKE WITH DR. BULLOCK ON THE PHONE. ORDERED 40 MEQ OF POTASSIUM VIA NG TUBE. ORDER READ BACK AND CONFIRMED.
[2021-11-16] MEDS ORDERED: POTASSIUM CHLORIDE 20 MEQ TAB.PRT.SR PO ONE (01:15)
[2021-11-16] MEDS: D5/0.45 NS 1,000 ML IV SCH ×3 (02:00→17:38)
[2021-11-16] MEDS: DONEPEZIL HCL 5 MG TABLET (ARICEPT) PO SCH ×2 (02:06→21:24)
[2021-11-16] MEDS: CARVEDILOL 12.5 MG TABLET (COREG) PO SCH ×3 (02:06→21:24)
[2021-11-16] MEDS: AMIODARONE HCL 200 MG TABLET PO SCH ×3 (02:07→21:24)
[2021-11-16] MEDS: FAMOTIDINE PF 20 MG/2 ML VIAL IVP SCH ×2 (02:11→22:53)
[2021-11-16 02:59] VITALS: BP_SYST 139
[2021-11-16] MEDS: hydrALAZINE HCL 20 MG/ML VIAL IVP PRN (03:59)
--- NOTE | 2021-11-16 07:03 | NUR ---
CRITICAL LAB MARYCHUY FROM THE LAB CALLED TO INFORM NURSE THAT PT IS COVID POSITIVE WITH A POSITIVE RAPID AND PCR TEST
--- NOTE | 2021-11-16 07:06 | NUR ---
CLOSING NOTES PT IS LYING IN BED WITH BILATERAL WRIST RESTRAINTS. CIRCULATION IS GOOD BILATERALLY. PT IS IN NO APPARENT DISTRESS. RIGHT NARE NG TUBE IS IN PLACE AND CONFIRMED THROUGH AUSCULTATION. ENDORSED CARE TO DAY SHIFT. FALL AND SAFETY PRECAUTIONS IN PLACE WITH THE BED IN THE LOWEST POSITION AND CALL LIGHT WITHIN REACH
--- NOTE | 2021-11-16 08:00 | NUR ---
OPENING NOTES: PATIENT RESTING IN BED. BREATHING EVEN AND NON LABORED TO RA. NGT IN PLACED. IV INFUSING WELL. BED LOCKED, ALARM ON AND IN LOWEST POSITION. CALL LIGHT WITHIN REACH.
[2021-11-16] MEDS: ATORVASTATIN 20 MG TABLET PO SCH (08:22)
[2021-11-16] MEDS: DEXAMETHASONE SOD PHOSPHATE 4 MG/ML VIAL IVP SCH (08:24)
[2021-11-16] MEDS: ENOXAPARIN SODIUM 30 MG/0.3 ML SYRINGE SUBCUT SCH (08:25)
[2021-11-16] MEDS: FUROSEMIDE 40 MG TABLET PO SCH (08:27)
--- NOTE | 2021-11-16 08:48 | NUR ---
RN notes/ incontinent care done: Med pass and incontinent care done. Repositioned patient. Bed locked, alarm on and in lowest position. Bilateral wrist restraint in placed.
[2021-11-16 11:23] VITALS: BP_SYST 132
--- NOTE | 2021-11-16 14:10 | NUR ---
SPOKE TO DR. RAYA: PER DR. RAYA CONTINUE HOME MEDICATIONS FOR DISCHARGE AND MAY PULL OUT NGT AND PICC LINE BEFORE DISCHARGE. PER PER DR. RAYA FAMILY WANTED TO DISCHARGE PATIENT HOME W/ HOSPICE.
--- NOTE | 2021-11-16 15:33 | NUR ---
Spoke w/ patient's daughter and granddaughter-they would like patient to DC to a board and care on [facility] hospice. [phone]. The hospice refused to accept patient because she has revoked from their hospice x 3. The granddaughter called and stated she will call with another hospice that will accept her grandmother. I received a call from [facility] and sent requested documentation to .
[2021-11-16 15:57] VITALS: BP_SYST 160
--- NOTE | 2021-11-16 17:41 | NUR ---
Spoke to the daughter: Spoke to the daughter and wanted the patient be discharged tomorrow with hospice.
--- NOTE | 2021-11-16 18:00 | NUR ---
Spoke to DR. Raya: SPOKE TO DR. RAYA, PER DOROTA RODRIGUEZ, HOLD DISCHARGE TODAY, MAY DC TOMORROW WITH HOSPICE.
--- NOTE | 2021-11-16 19:20 | NUR ---
Closing notes: Patient resting in bed. No s/s of acute distress noted. Needs met throughout shift. IV infusing well. Bilateral wrist restraint in placed. Endorsed to sand hauler RN.
--- NOTE | 2021-11-16 19:30 | NUR ---
CLOSING NOTES ENDORSED CARE FROM DAY SHIFT. PT IS SEMIFOWLERS IN BED WITH BILATERAL WRIST RESTRAINTS. CIRCULATION IS GOOD BILATERALLY. PT IS IN NO APPARENT DISTRESS. RIGHT NARE NG TUBE IS IN PLACE AND CONFIRMED THROUGH AUSCULTATION. FALL AND SAFETY PRECAUTIONS IN PLACE WITH THE BED IN THE LOWEST POSITION AND CALL LIGHT WITHIN REACH Addendum: 11/16/21 at 2236 by Alexandr Rodarte LVN *OPENING NOTES*
[2021-11-16 20:00] VITALS: BP_SYST 162
[2021-11-17 00:24] VITALS: BP_SYST 157
[2021-11-17] MEDS: D5/0.45 NS 1,000 ML IV SCH (02:37)
[2021-11-17 03:00] VITALS: BP_SYST 187
--- NOTE | 2021-11-17 03:00 | NUR ---
PT CARE ORAL CARE AND ORAL SUCTIONING PERFORMED ON PT. THICK WHITE SPUTUM SUCTIONED FROM PTS THROAT, APROX 2 ML. DIMINISHED GAG REFLEX NOTED. PT TOLERATED WELL. PT REPOSITIONED WITH HOB AT 45 DEGREES. RESTRAINTS CHECKED, PLACEMENT IS GOOD WITH GOOD CIRCULATION IN HANDS. FALL AND SAFETY PRECAUTIONS IN PLACE, BED IN LOWEST POSITION WITH CALL LIGHT WITHIN REACH.
[2021-11-17] MEDS ORDERED: hydrALAZINE HCL 20 MG/ML VIAL ONE (03:10)
[2021-11-17] MEDS: hydrALAZINE HCL 20 MG/ML VIAL IVP PRN (03:11)
[2021-11-17 04:00] VITALS: BP_SYST 156
--- NOTE | 2021-11-17 06:57 | NUR ---
CLOSING NOTES ENDORSED CARE TO DAY SHIFT. PT IS SEMIFOWLERS IN BED WITH BILATERAL WRIST RESTRAINTS. CIRCULATION IS GOOD BILATERALLY. PT IS IN NO APPARENT DISTRESS. RIGHT NARE NG TUBE IS IN PLACE AND CONFIRMED THROUGH AUSCULTATION. FALL AND SAFETY PRECAUTIONS IN PLACE WITH THE BED IN THE LOWEST POSITION AND CALL LIGHT WITHIN REACH
[2021-11-17 07:15] LABS: BASOPHILS % (AUTO) 0.3 % (0.0-2.0); HEMATOCRIT 36.4 % (36-48); HEMOGLOBIN 11.9 g/dL (12.0-16.0); LYMPHOCYTES # (AUTO) 1.3 K/uL (1.0-5.5); LYMPHOCYTES % (AUTO) 14.5 % (20.5-51.5); MEAN CORPUSCULAR HEMOGLOBIN 28 pg (27-31); MEAN CORPUSCULAR HGB CONC 33 % (32-36); MEAN CORPUSCULAR VOLUME 84 fL (79.0-98.0); MONOCYTES # (AUTO) 0.7 K/uL (0.0-1.0); MONOCYTES % (AUTO) 7.8 % (1.7-9.3); NEUTROPHILS # (AUTO) 6.7 K/uL (1.8-7.7); NEUTROPHILS % (AUTO) 77.4 % (40.0-70.0); PLATELET COUNT (AUTO) 206 K/uL (130-430); RED BLOOD CELL COUNT(AUTO) 4.35 MIL/uL (4.2-6.2); RED CELL DISTRIBUTION WIDTH 16.8 % (9.0-15.0); WHITE BLOOD COUNT (AUTO) 8.7 K/uL (4.8-10.8)
[2021-11-17 08:06] LABS: ALANINE AMINOTRANSFERASE 31 U/L (12-78); ALBUMIN 2.4 g/dL (3.4-4.8); ANION GAP 12 (5-15); ASPARTATE AMINOTRANSFERASE 35 U/L (10-37); CALCIUM 8.5 mg/dL (8.4-11.0); CHLORIDE 100 mmol/L (98-107); CREATININE 0.95 mg/dL (0.55-1.30); GLUCOSE 172 mg/dL (70-99); POTASSIUM 3.6 mmol/L (3.5-5.1); SODIUM SERUM 134 mmol/L (136-145); TOTAL BILIRUBIN 0.6 mg/dL (0.0-1.0); UREA NITROGEN, BLOOD 21 mg/dL (8-21)
[2021-11-17] MEDS: AMIODARONE HCL 200 MG TABLET PO SCH (09:00)
[2021-11-17 11:39] VITALS: BP_SYST 119
--- NOTE | 2021-11-17 12:18 | NUR ---
CM: Sp Noland, director, s/w Sera milton # [phone] who said [facility] is not accepting the pt. Lala will talk to another hospice ([facility] hospice ).
[2021-11-17] MEDS: traMADol HCL HCL 50 MG TABLET (ULTRAM) PO PRN (12:50)
--- NOTE | 2021-11-17 13:43 | NUR ---
Patient accepted by [facility] in [place]. They are going to review the patient for acceptance .Faxed information to [facility] fax [phone]. [facility] accepted the patient-they will transport the patient to [address] [facility] [place] [address] at 4 PM. They are requesting a repeat rapid Covid test before DC. Charge nurse called and requested a repeat covid test.
[2021-11-17 15:14] VITALS: BP_SYST 130
[2021-11-17 16:07] VITALS: BP_SYST 130
--- NOTE | 2021-11-17 16:27 | NUR ---
pPT IN BED IN SEMIFOWLERS POSITION WITH PILLOWS SUPPORTING HER BOTH LEGS AWAKE AND ALERT TIMES TWO SKIN WARM AND DRYSOME REDNESS ON SACRAL AREA ,PT WITH NASO GASTRIC TUBE IN LEFT NARE BOLUS FEEDINGS FOLLOWED BY 200 CC WATER EVERY FOUR HOURS. NASOGASTRIC TUBE IS PATENT 20 CC RESIDUE OF FEEDING OBTAINED. NO VOMITING EPISODES PT IS INCONTINENT OF URINE AND STOOLS PASSED A MEDIUM BOWEL MOVEMENT VITAL SIGNS ARE STABLE PT IS AFEBRILE PT HAD A DOUBLE PORT PICC LINE IN RIGHT ARM SAME PATENT TO FLUSH D5WITH 0.45% SALINE INFUSING AT 100 CC/HR SAME WITH NO INCIDENTS. RESPIRASIONS ARE REGULAR PT IS ON ROOM AIR.
== END 2021-11-17 16:45 | disposition hospice, home (50) | DRG 177 ==
LOC: SED 15:21 → STU 20:47
PROVIDERS: ADMIT Internal Medicine; ATTEND Internal Medicine
PROC: 05HY33Z Insertion of Infusion Device into Upper Vein, Percutaneous Approach (ICD-10-PCS; principal; 2021-11-11)
PROC: B54MZZA Ultrasonography of Right Upper Extremity Veins, Guidance (ICD-10-PCS; 2021-11-11)
DX: U07.1 COVID-19 (principal); J96.01 Acute respiratory failure with hypoxia; J12.82 Pneumonia due to coronavirus disease 2019; S42.301A Unspecified fracture of shaft of humerus, right arm, initial encounter for closed fracture; J44.0 Chronic obstructive pulmonary disease with (acute) lower respiratory infection; I82.409 Acute embolism and thrombosis of unspecified deep veins of unspecified lower extremity; I44.2 Atrioventricular block, complete; E03.9 Hypothyroidism, unspecified; F02.80 Dementia in other diseases classified elsewhere, unspecified severity, without behavioral disturbance, psychotic disturbance, mood disturbance, and anxiety; G30.9 Alzheimer's disease, unspecified; E78.5 Hyperlipidemia, unspecified; I48.0 Paroxysmal atrial fibrillation; I25.10 Atherosclerotic heart disease of native coronary artery without angina pectoris; E11.9 Type 2 diabetes mellitus without complications; I10 Essential (primary) hypertension; X58.XXXA Exposure to other specified factors, initial encounter; Z95.0 Presence of cardiac pacemaker; Z86.73 Personal history of transient ischemic attack (TIA), and cerebral infarction without residual deficits; Z95.5 Presence of coronary angioplasty implant and graft; Z79.890 Hormone replacement therapy; Z79.899 Other long term (current) drug therapy; Z86.718 Personal history of other venous thrombosis and embolism; Z79.01 Long term (current) use of anticoagulants; Y93.89 Activity, other specified; Y92.89 Other specified places as the place of occurrence of the external cause; Y99.8 Other external cause status
CPT/HCPCS: 36415; 36600; 70450-TC; 70496; 70498; 71045; 76376; 80048; 80053; 80307; 81000; 82803-TC; 83605; 83735; 83880; 84100; 84439; 84443; 84484; 85025; 85610-TC; 86140; 87040; 87086; 87491; 87591; 93005; 93306; 94640; 94760; 96361; 96365; 97110-GP; 97530-GP; 99291; G0378; G0480; G0481; G0482; J0360; J0696; J1100; J1650; J2060; J2405; J3480; J3490; J7060; Q9967; U0003